=== PATIENT | female | born 1970 | race Caucasian/White ===

== ENCOUNTER → 2017-01-31 | Day surgery (SDC) | payer OTHER ==
[~2017-01-31] VITALS: Ht 165.1 cm; Wt 74.4 kg
== END | disposition home or self-care (01) ==
LOC: OR 07:48
DX: M67.441 Ganglion, right hand (principal); M79.7 Fibromyalgia; G62.9 Polyneuropathy, unspecified; Z88.8 Allergy status to other drugs, medicaments and biological substances; Z79.899 Other long term (current) drug therapy; Z53.8 Procedure and treatment not carried out for other reasons
CPT/HCPCS: J0690; J7030